=== PATIENT | female | born 1950 | race Caucasian/White ===

== ENCOUNTER 2018-02-21 10:02 | Inpatient (IN) | payer MEDICARE, OTHER ==
[2018-02-21 10:56] VITALS: BP 192/108
[2018-02-21] MEDS ORDERED: guaiFENesin 200 MG/10 ML UDC PO PRN (12:12)
[2018-02-21 12:54] LABS: CHOLESTEROL 197 mg/dL (<200); HDL -HIGH DENSITY LIPOPROTEIN 70 mg/dL (23-92); TRIGLYCERIDES 112 mg/dL (<150)
[2018-02-21] MEDS: Escitalopram Oxalate 5 mg Tab PO SCH (13:59)
--- NOTE | 2018-02-21 17:28 | History and Physical ---
History of Present Illness - HPI Chief Complaint: direct admit from [place] to [facility] for SI HPI: This is a 67-year old female who is a direct admit from [facility] due to suicidal ideation. Vital Signs: Last Vital Signs Temp 97.8 F 02/21/18 16:21 Pulse 89 02/21/18 16:21 Resp 20 02/21/18 16:21 BP 151/99 02/21/18 16:21 Pulse Ox 100 02/21/18 12:06 Past Medical History Other History: HTN SCHIZOPHRENIA DEPRESSION BIPOLAR Social History Smoke: No Alcohol: None Drugs: None Lives: With Family - Allergies Allergies/Adverse Reactions: Allergies Allergy/AdvReac Type Severity Reaction Status Date / Time No Known Allergies Allergy Verified 02/21/18 10:57 Review of Systems - Review of Systems Constitutional: Report: No Significant Eyes: Report: No Significant Respiratory: Report: No Significant Cardiovascular: Report: No Significant Neurological: Report: No Significant Physical Exam - Physical Exam HEENT: Report: Ears Nose Throat within normal limits Neck: Report: Within normal limits Cardiovascular Systems: Report: +s1/s2 noted, Regular, Rate and Rhythm Respiratory: Report: Breath Sounds are within normal limits, Clear to Auscultation of lung griffith Abdomen: Report: Non-tender to palpation Back: Report: Inspection of back is within normal limits. Skin: Report: Color of skin is within normal limits, Warm, Dry Neuro/Psych: Report: Mood affect is within normal limits - Lab Results All Lab Results last 24 hours: Laboratory Results - last 24 hr 02/21/18 12:30 Triglycerides 112 Cholesterol 197 LDL Cholesterol Direct 111 HDL Cholesterol 70 - Assessment Assessment: HTN SCHIZOPHRENIA DEPRESSION BIPOLAR SI - Plan Plan: monitor bp closely will adjust bp meds accordingly fall precautions continue current orders
--- NOTE | 2018-02-22 02:01 | Psychiatric Evaluation ---
DATE OF SERVICE: 02/21/2018 IDENTIFYING DATA: The patient is a 67-year-old female admitted from [facility], brought by the son who has taken the patient over there for suicidal ideation and during the evaluation, the patient is noted to be primarily Guatemalan speaking and the patient is stating that she is not able to sleep and could not figure it out why she has been feeling depressed. The patient is tearful and is anxious. The patient has been variously diagnosed to have schizophrenia, bipolar disorder, depression, and the patient is in need of full assistance with her ADLs. Sleep and appetite at the time of the hospitalization are reported to be poor. The patient is also noted to be very paranoid at this time and has been very guarded in giving the information. The patient is reported to have been compliant with the medication. PAST PSYCHIATRIC HISTORY: Details are not known. MEDICAL HISTORY: Physical examination is requested to be done by Dr. Barnes. SUBSTANCE ABUSE HISTORY: None. PHYSICAL OR SEXUAL ABUSE HISTORY: None. LEGAL PROBLEMS: None at this time. The patient's mood is noted to be depressed. Affect is constricted. The patient is noted to be extremely paranoid and is getting easily anxious. The patient is alert and aware that she is in the hospital. Attention span and concentration are noted to be poor at this time. Insight and judgment also noted to be impaired. Impulse control is noted to be poor. The patient is insisting on hurting herself. IMPRESSION: AXIS I: Schizoaffective disorder. AXIS II: None. AXIS III: As per Dr. Barnes. IMMEDIATE TREATMENT PLAN: The patient is going to be continued on Lexapro and olanzapine. Olanzapine is going to be given 2.5 mg twice a day, Lexapro is going to be started at 5 mg and in view of her anxiety, the patient is going to be started on 0.5 mg b.i.d. of Klonopin. ESTIMATED LENGTH OF STAY: 3-5 days. DISCHARGE CRITERIA: When the patient is no longer a threat to self or others and be able to cope up with the stress. JOB# [id number]
[2018-02-22] MEDS: Escitalopram Oxalate 5 mg Tab PO SCH (09:33)
--- NOTE | 2018-02-22 16:49 | Internal Medicine Prog Note ---
Internal Medicine Subjective - Subjective Service Date: 02/22/18 Patient seen and examined:: with staff Patient is:: awake, verbal Per staff patient has:: no adverse event, tolerating meds Internal Medicine Objective - Results Recent Labs: Laboratory Last Values Triglycerides 112 mg/dL (<150) 02/21/18 12:30 Cholesterol 197 mg/dL (<200) 02/21/18 12:30 LDL Cholesterol Direct 111 mg/dL (75-193) 02/21/18 12:30 HDL Cholesterol 70 mg/dL (23-92) 02/21/18 12:30 - Physical Exam Vitals and I&O: Vital Signs Temp 98.8 F 02/22/18 14:47 Pulse 60 02/22/18 14:47 Resp 18 02/22/18 15:32 BP 101/52 02/22/18 14:47 Pulse Ox 96 02/22/18 14:47 Intake & Output 02/21/18 02/22/18 02/22/18 18:59 06:59 18:59 Weight (lbs) 81 lb Other: Stool Characteristics Soft Weight Source Bedscale Active Medications: Current Medications Acetaminophen (Tylenol) 650 mg PO Q4H PRN PRN Reason: Pain Or Fever above 101 Stop: 04/22/18 12:11 Amlodipine Besylate (Norvasc) 10 mg PO DAILY [facility] Stop: 04/23/18 08:59 Last Admin: 02/22/18 09:33 Dose: 10 mg Atenolol (Tenormin) 50 mg PO DAILY [facility] Stop: 04/22/18 11:59 Last Admin: 02/22/18 09:32 Dose: 50 mg Clonazepam (Klonopin) 0.5 mg PO BID PRN; Protocol PRN Reason: Anxiety Stop: 04/22/18 16:59 Last Admin: 02/22/18 09:33 Dose: 0.5 mg Escitalopram Oxalate (Lexapro) 5 mg PO DAILY [facility]; Protocol Stop: 04/22/18 11:44 Last Admin: 02/22/18 09:33 Dose: 5 mg Guaifenesin (Robitussin) 200 mg PO Q4HR PRN PRN Reason: Cough or Congestion Stop: 04/22/18 12:11 Lisinopril (Zestril) 20 mg PO DAILY [facility] Stop: 04/23/18 08:59 Last Admin: 02/22/18 09:32 Dose: 20 mg Olanzapine (Zyprexa) 2.5 mg PO QAM [facility]; Protocol Stop: 04/22/18 11:44 Last Admin: 02/22/18 09:33 Dose: 2.5 mg Olanzapine (Zyprexa) 2.5 mg PO HS [facility]; Protocol Stop: 04/22/18 20:59 Last Admin: 02/21/18 21:54 Dose: 2.5 mg Ondansetron HCl (Zofran) 4 mg IV Q8H PRN PRN Reason: Nausea / Vomiting Stop: 04/22/18 12:11 General: alert HEENT: NC/AT, PERRLA Neck: Supple Lungs: CTAB Cardiovascular: RRR, Normal S1, Normal S2 Abdomen: soft, non-tender, non-distended Extremities: excoriation Neurological: alert Internal Medicine Assmt/Plan - Assessment Assessment: HTN SCHIZOPHRENIA DEPRESSION BIPOLAR SI - Plan Plan: monitor bp closely will adjust bp meds accordingly fall precautions continue current orders
--- NOTE | 2018-02-23 02:43 | Progress Notes ---
DATE: 02/22/2018 PSYCHIATRIC PROGRESS NOTE SUBJECTIVE: Staff was spoken to. The patient is interviewed. Mood is noted to be irritable. Affect is constricted. The patient wants to be left alone. The patient is extremely depressed, isolative, and withdrawn. Coping skills at this time are noted to be very poor. The patient is currently on escitalopram 5 mg and Zyprexa has been given 2.5 mg. She continues to be paranoid and insisting on ending her life. ASSESSMENT: The patient is severely depressed, psychotic, and suicidal. PLAN: To continue the patient with the supportive therapy. We encouraged the patient to verbalize the concerns rather than to act out. JOB# [id number]
[2018-02-23] MEDS: Escitalopram Oxalate 5 mg Tab PO SCH (09:07)
--- NOTE | 2018-02-23 09:37 | Consultation ---
DATE OF CONSULTATION: 02/22/2018 REFERRING PHYSICIAN: Cody Carpenter MD TYPE OF CONSULTATION: Psychology. HISTORY OF PRESENT ILLNESS: The patient is a 67-year-old female. The patient is admitted from [facility]. The patient is brought in by her son due to suicidal ideation. The following is by review of the medical record and by patient's self-report. 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 The patient admits that she is depressed, but is unable to state the reasons why she is depressed. There seems to be suspiciousness on the part of the patient and the patient is at times reluctant to answer questions. However, the patient did admit that she does have suicidal thoughts passively without a plan or intention. PAST MEDICAL HISTORY: Please see history and physical by Dr. Barnes. PAST PSYCHIATRIC HISTORY: Records are unavailable. Details are unknown. SUBSTANCE ABUSE HISTORY: The patient denied any history. PSYCHOSOCIAL HISTORY: The patient did not answer questions about occupational or educational history or gnosticism affiliation. The patient denied any history of physical or sexual abuse or any current legal problems. The patient's son is very involved in her care. MENTAL STATUS EXAMINATION: The patient appears to be older than her stated age. The patient's attitude is superficially cooperative. Eye contact is poor. Speech is selectively mute, at times, but otherwise spontaneous. Mood is depressed. Affect is constricted. There is evidence of paranoid ideation as well as some anxiety. The patient denied any auditory or visual hallucinations. The patient admits that she has experienced suicidal thoughts and hurting herself. The patient is unable to verbally contract for safety. Impulse control is inadequate. Concentration is impaired. Sensorium is alert and oriented to self and place. The patient did not participate in the memory assessment. The patient did not participate in the interpretation of proverbs. Insight is impaired. Judgment is impaired. DIAGNOSTIC IMPRESSION: AXIS I: Provisional diagnosis of schizoaffective disorder. AXIS II: Deferred. AXIS III: Per Dr. Barnes. TREATMENT PLAN: The patient has been seen by Dr. Carpenter for psychiatric evaluation and for the management of the patient's psychotropic medications. The treatment plan indicates the patient is continued on Lexapro and olanzapine as well as being started on 0.5 mg b.i.d. of Klonopin. We will provide supportive psychotherapy to include suicide risk and prevention. We will provide daily opportunities for the patient to verbally contract for safety and no self-harm. We will provide cognitive behavioral therapy to decrease the patient's depression. We will provide coping strategies for phase of life issues as well. We will continue to provide reality orientation, differentiation and integration and assist the patient in managing her stress and increasing her frustration tolerance. The patient's family will be included in her care and treatment. Thank you, Dr. Carpenter for this consult and the opportunity to participate in this patient's care. JOB# [id number] ACE
--- NOTE | 2018-02-23 12:53 | Internal Medicine Prog Note ---
Internal Medicine Subjective - Subjective Patient seen and examined:: with staff, chart reviewed Patient is:: awake, verbal, interactive Per staff patient has:: no adverse event, no episodes of fall, tolerating meds Internal Medicine Objective - Results Recent Labs: Laboratory Last Values Triglycerides 112 mg/dL (<150) 02/21/18 12:30 Cholesterol 197 mg/dL (<200) 02/21/18 12:30 LDL Cholesterol Direct 111 mg/dL (75-193) 02/21/18 12:30 HDL Cholesterol 70 mg/dL (23-92) 02/21/18 12:30 - Physical Exam Vitals and I&O: Vital Signs Temp 98.6 F 02/23/18 06:34 Pulse 72 02/23/18 08:32 Resp 18 02/23/18 11:20 BP 114/71 02/23/18 08:32 Pulse Ox 98 02/23/18 06:34 Intake & Output 02/22/18 02/23/18 02/23/18 18:59 06:59 18:59 Other: # Voids 3 3 # Bowel Movements 0 0 Active Medications: Current Medications Acetaminophen (Tylenol) 650 mg PO Q4H PRN PRN Reason: Pain Or Fever above 101 Stop: 04/22/18 12:11 Amlodipine Besylate (Norvasc) 10 mg [facility] Stop: 04/23/18 08:59 Last Admin: 02/23/18 08:31 Dose: 10 mg Atenolol (Tenormin) 50 mg PO DAILY [facility] Stop: 04/22/18 11:59 Last Admin: 02/23/18 08:30 Dose: 50 mg Clonazepam (Klonopin) 0.5 mg PO BID PRN; Protocol PRN Reason: Anxiety Stop: 04/22/18 16:59 Last Admin: 02/22/18 09:33 Dose: 0.5 mg Escitalopram Oxalate (Lexapro) 5 mg PO DAILY [facility]; Protocol Stop: 04/22/18 11:44 Last Admin: 02/23/18 09:07 Dose: 5 mg Guaifenesin (Robitussin) 200 mg PO Q4HR PRN PRN Reason: Cough or Congestion Stop: 04/22/18 12:11 Lisinopril (Zestril) 20 mg PO [facility]ILY [facility] Stop: 04/23/18 08:59 Last Admin: 02/23/18 08:32 Dose: 20 mg Olanzapine (Zyprexa) 2.5 mg PO QAM [facility]; Protocol Stop: 04/22/18 11:44 Last Admin: 02/23/18 08:30 Dose: 2.5 mg Olanzapine (Zyprexa) 2.5 mg PO HS [facility]; Protocol Stop: 04/22/18 20:59 Last Admin: 02/22/18 21:00 Dose: 2.5 mg Ondansetron HCl (Zofran) 4 mg IV Q8H PRN PRN Reason: Nausea / Vomiting Stop: 04/22/18 12:11 General: demented HEENT: NC/AT, PERRLA Neck: Supple Lungs: CTAB Cardiovascular: RRR, Normal S1, Normal S2 Abdomen: soft, non-tender, non-distended Extremities: excoriation Neurological: no change Internal Medicine Assmt/Plan - Assessment Assessment: Assessment: HTN SCHIZOPHRENIA DEPRESSION BIPOLAR SI - Plan Plan: monitor bp closely will adjust bp meds accordingly fall precautions continue current orders - Plan Plan: labs noted cpm
[2018-02-24] MEDS: Escitalopram Oxalate 5 mg Tab PO SCH (10:00)
--- NOTE | 2018-02-24 10:06 | Progress Notes ---
DATE: 02/23/2018 SUBJECTIVE: Staff was spoken to. The patient is interviewed. Mood is noted to be irritable. Affect is constricted. The patient is stating that she is tired of her life and she is looking for ways to kill herself. The patient is stating that the depression has been an issue for her for the past couple of years and she could not figure it out. The patient is paranoid at this time. The patient is not able to contract for safety. The patient is currently on escitalopram 5 mg and I am planning to increase the dose to 10 mg and the Zyprexa is going to be continued for her psychosis. The patient is denying any command hallucinations and the patient is still insisting on ending her life. The patient's coping skills are noted to be very poor at this time. ASSESSMENT: The patient is still psychotic and suicidal. The patient appetite and sleep are noted to be very poor. PLAN: To continue the patient with the supportive therapy and I encouraged the patient to verbalize the concerns rather than to act out. PSYCHIATRIC# [id number]
--- NOTE | 2018-02-24 12:59 | Internal Medicine Prog Note ---
Internal Medicine Subjective - Subjective Patient seen and examined:: with staff, chart reviewed Patient is:: awake, verbal, interactive Per staff patient has:: no adverse event, no episodes of fall, tolerating meds Internal Medicine Objective - Results Recent Labs: Laboratory Last Values Triglycerides 112 mg/dL (<150) 02/21/18 12:30 Cholesterol 197 mg/dL (<200) 02/21/18 12:30 LDL Cholesterol Direct 111 mg/dL (75-193) 02/21/18 12:30 HDL Cholesterol 70 mg/dL (23-92) 02/21/18 12:30 - Physical Exam Vitals and I&O: Vital Signs Temp 98.0 F 02/24/18 05:08 Pulse 65 02/24/18 10:00 Resp 18 02/24/18 05:08 BP 135/84 02/24/18 10:00 Pulse Ox 98 02/24/18 05:08 Intake & Output 02/23/18 02/24/18 02/24/18 18:59 06:59 18:59 Intake Total 480 Balance 480 Intake: Oral 480 Other: # Voids 2 2 # Bowel Movements 0 Active Medications: Current Medications Acetaminophen (Tylenol) 650 mg PO Q4H PRN PRN Reason: Pain Or Fever above 101 Stop: 04/22/18 12:11 Last Admin: 02/23/18 14:35 Dose: 650 mg Amlodipine Besylate (Norvasc) 10 mg PO DAILY [facility] Stop: 04/23/18 08:59 Last Admin: 02/24/18 10:00 Dose: 10 mg Atenolol (Tenormin) 50 mg PO DAILY [facility] Stop: 04/22/18 11:59 Last Admin: 02/24/18 10:00 Dose: 50 mg Clonazepam (Klonopin) 0.5 mg PO BID PRN; Protocol PRN Reason: Anxiety Stop: 04/22/18 16:59 Last Admin: 02/22/18 09:33 Dose: 0.5 mg Escitalopram Oxalate (Lexapro) 10 mg PO DAILY [facility]; Protocol Stop: 04/25/18 08:59 Last Admin: 02/24/18 10:00 Dose: 10 mg Guaifenesin (Robitussin) 200 mg PO Q4HR PRN PRN Reason: Cough or Congestion Stop: 04/22/18 12:11 Lisinopril (Zestril) 20 mg PO DAILY [facility] Stop: 04/23/18 08:59 Last Admin: 02/24/18 10:00 Dose: 20 mg Olanzapine (Zyprexa) 2.5 mg PO QAM [facility]; Protocol Stop: 04/22/18 11:44 Last Admin: 02/24/18 10:00 Dose: 2.5 mg Olanzapine (Zyprexa) 2.5 mg PO HS [facility]; Protocol Stop: 04/22/18 20:59 Last Admin: 02/24/18 06:26 Dose: 2.5 mg Ondansetron HCl (Zofran) 4 mg IV Q8H PRN PRN Reason: Nausea / Vomiting Stop: 04/22/18 12:11 General: demented HEENT: NC/AT, PERRLA Neck: Supple Lungs: CTAB Cardiovascular: RRR, Normal S1, Normal S2 Abdomen: soft, non-tender, non-distended Extremities: excoriation Neurological: no change Internal Medicine Assmt/Plan - Assessment Assessment: Assessment: HTN SCHIZOPHRENIA DEPRESSION BIPOLAR SI - Plan Plan: monitor bp closely will adjust bp meds accordingly fall precautions continue current orders - Plan Plan: labs noted cpm
--- NOTE | 2018-02-25 00:12 | Progress Notes ---
DATE: 02/24/2018 PSYCHIATRIC PROGRESS NOTE SUBJECTIVE: Staff was spoken to. The patient is interviewed. Mood is noted to be depressed. Affect is constricted. Insight and judgment at this time are noted to be still impaired. Impulse control is noted to be limited. Coping skills are noted to be limited. The patient has been having difficult time to cope with the stress. The patient is isolative and withdrawn. ASSESSMENT: The patient is still depressed and suicidal. PLAN: To continue the patient with the supportive therapy. I encouraged the patient to verbalize the concerns rather than to act out. JOB# [id number]
[2018-02-25] MEDS: Escitalopram Oxalate 5 mg Tab PO SCH (08:58)
[2018-02-25 09:08] LABS: % BASOPHILS 0.5 % (0.0-2.0); % EOSINOPHILS 0.7 % (0.0-5.0); % LYMPHOCYTES 17.6 % (20.0-50.0); % MONOCYTES 4.1 % (2.0-10.0); % NEUTROPHILS 77.1 % (40.0-80.0); EOSINOPHILE ABSOLUTE 0.1 Th/cmm (0.1-0.4); HEMOGLOBIN 13.9 gm/dL (12-16); LYMPHOCYTE ABSOLUTE 1.5 Th/cmm (1.5-3.0); MEAN CORPUSCULAR HEMOGLOBIN 30.9 pg (27.0-31.0); MEAN CORPUSCULAR HGB CONC 33.9 pg (28.0-36.0); MEAN PLATELET VOLUME 7.9 fl; MONOCYTE ABSOLUTE 0.3 Th/cmm (0.3-1.0); NEUTROPHILE ABSOLUTE 6.5 Th/cmm (1.8-8.0); PLATELET COUNT 271 Th/cmm (150-400); WHITE BLOOD COUNT 8.4 Th/cmm (4.8-10.8)
[2018-02-25 09:17] LABS: ALB/GLOB RATIO 1.5 (1.0-1.8); ALBUMIN 3.7 gm/dL (3.7-5.3); ALKALINE PHOSPHATASE 52 U/L (34-104); ANION GAP 14.5 (7.0-16.0); BILIRUBIN,TOTAL 0.5 mg/dL (0.3-1.0); BUN - UREA NITROGEN 18 mg/dL (7-25); CALCIUM SERUM 9.5 mg/dL (8.6-10.3); CHLORIDE 107 mEq/L (98-107); CREATININE - SERUM 0.7 mg/dL (0.6-1.2); GFR AFRICAN-AMERICAN > 60.0 ml/min (>90); GFR NON AFRICAN-AMERICAN > 60.0 ml/min; GLUCOSE 130 mg/dL (70-105); POTASSIUM SERUM 3.5 mEq/L (3.5-5.1); SGOT 11 U/L (13-39); SGPT/ALT 10 U/L (7-52); SODIUM SERUM 144 mEq/L (136-145); TOTAL PROTEIN,SERUM 6.2 gm/dL (6.0-8.3)
[2018-02-25 09:38] LABS: URINE SOURCE CLEAN C
[2018-02-25 09:43] LABS: URINE BILIRUBIN NEGATIVE (NEGATIVE); URINE BLOOD NEGATIVE (NEGATIVE); URINE GLUCOSE (UA) NEGATIVE (NEGATIVE); URINE KETONE NEGATIVE (NEGATIVE); URINE LEUKOCYTE ESTERASE NEGATIVE (NEGATIVE); URINE NITRATE NEGATIVE (NEGATIVE); URINE PROTEIN NEGATIVE (NEGATIVE); URINE UROBILINOGEN 0.2 E.U./dL (0.2 - 1.0)
[2018-02-25 09:48] LABS: URINE CLARITY CLEAR (CLEAR); URINE COLOR YELLOW
--- NOTE | 2018-02-25 09:51 | Internal Medicine Prog Note ---
Internal Medicine Subjective - Subjective Patient seen and examined:: with staff, chart reviewed Patient is:: awake, verbal, interactive Per staff patient has:: no adverse event, no episodes of fall, tolerating meds Internal Medicine Objective - Results Result Diagrams: 02/25/18 08:54 02/25/18 08:54 Recent Labs: Laboratory Last Values WBC 8.4 Th/cmm (4.8-10.8) 02/25/18 08:54 RBC 4.50 Mil/cmm (3.80-5.20) 02/25/18 08:54 Hgb 13.9 gm/dL (12-16) 02/25/18 08:54 Hct 41.0 % (41.0-60) 02/25/18 08:54 MCV 91.0 fl (81-100) 02/25/18 08:54 MCH 30.9 pg (27.0-31.0) 02/25/18 08:54 MCHC Differential 33.9 pg (28.0-36.0) 02/25/18 08:54 RDW 13.0 % (11.5-20.0) 02/25/18 08:54 Plt Count 271 Th/cmm (150-400) 02/25/18 08:54 MPV 7.9 fl 02/25/18 08:54 Neutrophils % 77.1 % (40.0-80.0) 02/25/18 08:54 Lymphocytes % 17.6 % (20.0-50.0) L 02/25/18 08:54 Monocytes % 4.1 % (2.0-10.0) 02/25/18 08:54 Eosinophils % 0.7 % (0.0-5.0) 02/25/18 08:54 Basophils % 0.5 % (0.0-2.0) 02/25/18 08:54 Sodium 144 mEq/L (136-145) 02/25/18 08:54 Potassium 3.5 mEq/L (3.5-5.1) 02/25/18 08:54 Chloride 107 mEq/L (98-107) 02/25/18 08:54 Carbon Dioxide 26.0 mEq/L (21.0-31.0) 02/25/18 08:54 Anion Gap 14.5 (7.0-16.0) 02/25/18 08:54 BUN 18 mg/dL (7-25) 02/25/18 08:54 Creatinine 0.7 mg/dL (0.6-1.2) 02/25/18 08:54 Est GFR ( Amer) > 60.0 ml/min (>90) 02/25/18 08:54 Est GFR (Non-Af Amer) > 60.0 ml/min 02/25/18 08:54 BUN/Creatinine Ratio 25.7 02/25/18 08:54 Glucose 130 mg/dL (70-105) H 02/25/18 08:54 Calcium 9.5 mg/dL (8.6-10.3) 02/25/18 08:54 Total Bilirubin 0.5 mg/dL (0.3-1.0) 02/25/18 08:54 AST 11 U/L (13-39) L 02/25/18 08:54 ALT 10 U/L (7-52) 02/25/18 08:54 Alkaline Phosphatase 52 U/L (34-104) 02/25/18 08:54 Total Protein 6.2 gm/dL (6.0-8.3) 02/25/18 08:54 Albumin 3.7 gm/dL (3.7-5.3) 02/25/18 08:54 Globulin 2.5 gm/dL 02/25/18 08:54 Albumin/Globulin Ratio 1.5 (1.0-1.8) 02/25/18 08:54 Triglycerides 112 mg/dL (<150) 02/21/18 12:30 Cholesterol 197 mg/dL (<200) 02/21/18 12:30 LDL Cholesterol Direct 111 mg/dL (75-193) 02/21/18 12:30 HDL Cholesterol 70 mg/dL (23-92) 02/21/18 12:30 Urine Source CLEAN C 02/25/18 09:30 Urine Color YELLOW 02/25/18 09:30 Urine Clarity CLEAR (CLEAR) 02/25/18 09:30 Urine pH 7.0 (4.6 - 8.0) 02/25/18 09:30 Ur Specific [place] <= 1.005 (1.005-1.030) 02/25/18 09:30 Urine Protein NEGATIVE mg/dL (NEGATIVE) 02/25/18 09:30 Urine Glucose (UA) NEGATIVE mg/dL (NEGATIVE) 02/25/18 09:30 Urine Ketones NEGATIVE mg/dL (NEGATIVE) 02/25/18 09:30 Urine Blood NEGATIVE (NEGATIVE) 02/25/18 09:30 Urine Nitrate NEGATIVE (NEGATIVE) 02/25/18 09:30 Urine Bilirubin NEGATIVE (NEGATIVE) 02/25/18 09:30 Urine Urobilinogen 0.2 E.U./dL (0.2 - 1.0) 02/25/18 09:30 Ur Leukocyte Esterase NEGATIVE (NEGATIVE) 02/25/18 09:30 - Physical Exam Vitals and I&O: Vital Signs Temp 97.9 F 02/25/18 04:59 Pulse 70 02/25/18 08:58 Resp 18 02/25/18 08:00 BP 116/76 02/25/18 08:58 Pulse Ox 99 02/25/18 04:59 Intake & Output 02/24/18 02/25/18 02/25/18 18:59 06:59 18:59 Intake Total 480 Balance 480 Intake: Oral 480 Other: # Voids 2 Active Medications: Current Medications Acetaminophen (Tylenol) 650 mg PO Q4H PRN PRN Reason: Pain Or Fever above 101 Stop: 04/22/18 12:11 Last Admin: 02/23/18 14:35 Dose: 650 mg Amlodipine Besylate (Norvasc) 10 mg PO DAILY [facility] Stop: 04/23/18 08:59 Last Admin: 02/25/18 08:57 Dose: 10 mg Atenolol (Tenormin) 50 mg PO DAILY [facility] Stop: 04/22/18 11:59 Last Admin: 02/25/18 08:58 Dose: 50 mg Clonazepam (Klonopin) 0.5 mg PO BID PRN; Protocol PRN Reason: Anxiety Stop: 04/22/18 16:59 Last Admin: 02/22/18 09:33 Dose: 0.5 mg Escitalopram Oxalate (Lexapro) 10 mg PO DAILY [facility]; Protocol Stop: 04/25/18 08:59 Last Admin: 02/25/18 08:58 Dose: 10 mg Guaifenesin (Robitussin) 200 mg PO Q4HR PRN PRN Reason: Cough or Congestion Stop: 04/22/18 12:11 Lisinopril (Zestril) 20 mg PO DAILY [facility] Stop: 04/23/18 08:59 Last Admin: 02/25/18 08:56 Dose: 20 mg Olanzapine (Zyprexa) 2.5 mg PO QAM [facility]; Protocol Stop: 04/22/18 11:44 Last Admin: 02/25/18 08:57 Dose: 2.5 mg Olanzapine (Zyprexa) 2.5 mg PO HS [facility]; Protocol Stop: 04/22/18 20:59 Last Admin: 02/24/18 21:30 Dose: 2.5 mg Ondansetron HCl (Zofran) 4 mg IV Q8H PRN PRN Reason: Nausea / Vomiting Stop: 04/22/18 12:11 General: demented HEENT: NC/AT, PERRLA Neck: Supple Lungs: CTAB Cardiovascular: RRR, Normal S1, Normal S2 Abdomen: soft, non-tender, non-distended Extremities: excoriation Neurological: no change Internal Medicine Assmt/Plan - Assessment Assessment: Assessment: HTN SCHIZOPHRENIA DEPRESSION BIPOLAR SI - Plan Plan: monitor bp closely will adjust bp meds accordingly fall precautions continue current orders - Plan Plan: labs noted cpm Nutritional Asmnt/Malnutr-PDOC - Dietary Evaluation Malnutrition Findings (Please click <Entered> for more info): Nutritional Asmnt/Malnutrition Start: 02/24/18 13: 26 Text: Status: Complete Freq: Protocol: Document 02/24/18 13:26 [email or web address] (Rec: 02/24/18 13:34 [email or web address]) Nutritional Asmnt/Malnutrition Patient General Information Nutritional Screening Moderate Risk Diagnosis anxiety with SI Pertinent Medical Hx/Surgical Hx HTN, schizophrenia, depression , bipolar Subjective Information Pt was alert, walking around the hallway at time of visit. Pt is a Omani speaker. Nurses assisted in asking if pt has any food preferences, pt had no concerns. PO intake is 75-100% per EMR. Current Diet Order/ Nutrition Support regular Pertinent Medications zofran Pertinent Labs not indicated Nutritional Hx/Data Height 1.52 m Height (Calculated Centimeters) 152.4 Current Weight (lbs) 36.741 kg Weight (Calculated Kilograms) 36.7 Weight (Calculated Grams) 60139.0 [place] Body Weight 100 Body Mass Index (BMI) 15.8 Weight Status Underweight GI Symptoms GI Symptoms None Last BM not indicated Difficult in: None Food Allergies No Skin Integrity/Comment: dryness, tim 20 Current %PO Good (75-100%) Estimated Nutritional Goals BEE in Kcals: Using Current wt Calories/Kcals/Kg 30-35 Kcals Calculated [id number] Protein: Using Current wt Protein g/k.2 Protein Calculated 44 Fluid: ml 9114-9114 (1ml/kcal) Nutritional Problem No current Nutrition Prob Problem N/A Malnutrition Alert Is there a minimum of two criteria No selected? Query Text:Check all the applicable criteria. A minimum of two criteria are recommended for diagnosis of either severe or non-severe malnutrition. Malnutrition Related to Morbid Obesity Malnutrition related to morbid obesity No Intervention/Recommendation Comments 1. Continue with no added salt (4gm) diet as ordered 2. Monitor PO intake, wt, labs and skin integrity 3. Consider adding ensure to assist in weight gain 4. F/U as low risk in 7 days 03/03 PO check 02/27 Expected Outcomes/Goals Expected Outcomes/Goals Goal: PO intake to meet at least 75% of nutritional needs . Reviewed by Claire Leon RD
--- NOTE | 2018-02-25 22:57 | Progress Notes ---
DATE: 02/25/2018 PSYCHIATRIC PROGRESS NOTE SUBJECTIVE: Staff was spoken to. The patient is interviewed. Mood is noted to be irritable. Affect is constricted. Insight and judgment are noted to be still impaired. Impulse control is noted to be limited. Coping skills are noted to be limited. The patient has been having difficult time to cope with the stress. No side effects to the medications are noted. The patient has been still depressed and has been insisting on ending her life. Coping skills are noted to be extremely poor at this time. ASSESSMENT: The patient is still suicidal. PLAN: To continue the patient with the current medications. I encouraged the patient to verbalize the concerns rather than to act out. JOB# [id number]
[2018-02-26] MEDS: Escitalopram Oxalate 5 mg Tab PO SCH (08:36)
--- NOTE | 2018-02-26 14:22 | Internal Medicine Prog Note ---
Internal Medicine Subjective - Subjective Patient seen and examined:: with staff, chart reviewed Patient is:: awake, verbal, interactive Per staff patient has:: no adverse event, no episodes of fall, tolerating meds Internal Medicine Objective - Results Result Diagrams: 02/25/18 08:54 02/25/18 08:54 Recent Labs: Laboratory Last Values WBC 8.4 Th/cmm (4.8-10.8) 02/25/18 08:54 RBC 4.50 Mil/cmm (3.80-5.20) 02/25/18 08:54 Hgb 13.9 gm/dL (12-16) 02/25/18 08:54 Hct 41.0 % (41.0-60) 02/25/18 08:54 MCV 91.0 fl (81-100) 02/25/18 08:54 MCH 30.9 pg (27.0-31.0) 02/25/18 08:54 MCHC Differential 33.9 pg (28.0-36.0) 02/25/18 08:54 RDW 13.0 % (11.5-20.0) 02/25/18 08:54 Plt Count 271 Th/cmm (150-400) 02/25/18 08:54 MPV 7.9 fl 02/25/18 08:54 Neutrophils % 77.1 % (40.0-80.0) 02/25/18 08:54 Lymphocytes % 17.6 % (20.0-50.0) L 02/25/18 08:54 Monocytes % 4.1 % (2.0-10.0) 02/25/18 08:54 Eosinophils % 0.7 % (0.0-5.0) 02/25/18 08:54 Basophils % 0.5 % (0.0-2.0) 02/25/18 08:54 Sodium 144 mEq/L (136-145) 02/25/18 08:54 Potassium 3.5 mEq/L (3.5-5.1) 02/25/18 08:54 Chloride 107 mEq/L (98-107) 02/25/18 08:54 Carbon Dioxide 26.0 mEq/L (21.0-31.0) 02/25/18 08:54 Anion Gap 14.5 (7.0-16.0) 02/25/18 08:54 BUN 18 mg/dL (7-25) 02/25/18 08:54 Creatinine 0.7 mg/dL (0.6-1.2) 02/25/18 08:54 Est GFR ( Amer) > 60.0 ml/min (>90) 02/25/18 08:54 Est GFR (Non-Af Amer) > 60.0 ml/min 02/25/18 08:54 BUN/Creatinine Ratio 25.7 02/25/18 08:54 Glucose 130 mg/dL (70-105) H 02/25/18 08:54 Calcium 9.5 mg/dL (8.6-10.3) 02/25/18 08:54 Total Bilirubin 0.5 mg/dL (0.3-1.0) 02/25/18 08:54 AST 11 U/L (13-39) L 02/25/18 08:54 ALT 10 U/L (7-52) 02/25/18 08:54 Alkaline Phosphatase 52 U/L (34-104) 02/25/18 08:54 Total Protein 6.2 gm/dL (6.0-8.3) 02/25/18 08:54 Albumin 3.7 gm/dL (3.7-5.3) 02/25/18 08:54 Globulin 2.5 gm/dL 02/25/18 08:54 Albumin/Globulin Ratio 1.5 (1.0-1.8) 02/25/18 08:54 Triglycerides 112 mg/dL (<150) 02/21/18 12:30 Cholesterol 197 mg/dL (<200) 02/21/18 12:30 LDL Cholesterol Direct 111 mg/dL (75-193) 02/21/18 12:30 HDL Cholesterol 70 mg/dL (23-92) 02/21/18 12:30 TSH 1.84 uIU/ml (0.34-5.60) 02/25/18 08:54 Urine Source CLEAN C 02/25/18 09:30 Urine Color YELLOW 02/25/18 09:30 Urine Clarity CLEAR (CLEAR) 02/25/18 09:30 Urine pH 7.0 (4.6 - 8.0) 02/25/18 09:30 Ur Specific [place] <= 1.005 (1.005-1.030) 02/25/18 09:30 Urine Protein NEGATIVE mg/dL (NEGATIVE) 02/25/18 09:30 Urine Glucose (UA) NEGATIVE mg/dL (NEGATIVE) 02/25/18 09:30 Urine Ketones NEGATIVE mg/dL (NEGATIVE) 02/25/18 09:30 Urine Blood NEGATIVE (NEGATIVE) 02/25/18 09:30 Urine Nitrate NEGATIVE (NEGATIVE) 02/25/18 09:30 Urine Bilirubin NEGATIVE (NEGATIVE) 02/25/18 09:30 Urine Urobilinogen 0.2 E.U./dL (0.2 - 1.0) 02/25/18 09:30 Ur Leukocyte Esterase NEGATIVE (NEGATIVE) 02/25/18 09:30 - Physical Exam Vitals and I&O: Vital Signs Temp 97.5 F 02/26/18 06:56 Pulse 72 02/26/18 08:36 Resp 18 02/26/18 08:00 BP 101/63 02/26/18 08:36 Pulse Ox 98 02/26/18 06:56 Intake & Output 02/25/18 02/26/18 02/26/18 18:59 06:59 18:59 Intake Total 750 Balance 750 Intake: Oral 750 Other: # Voids 4 # Bowel Movements 1 Active Medications: Current Medications Acetaminophen (Tylenol) 650 mg PO Q4H PRN PRN Reason: Pain Or Fever above 101 Stop: 04/22/18 12:11 Last Admin: 02/23/18 14:35 Dose: 650 mg Amlodipine Besylate (Norvasc) 10 mg PO DAILY [facility] Stop: 04/23/18 08:59 Last Admin: 02/26/18 08:35 Dose: 10 mg Atenolol (Tenormin) 50 mg PO DAILY [facility] Stop: 04/22/18 11:59 Last Admin: 02/26/18 08:36 Dose: 50 mg Clonazepam (Klonopin) 0.5 mg PO BID PRN; Protocol PRN Reason: Anxiety Stop: 04/22/18 16:59 Last Admin: 02/25/18 20:56 Dose: 0.5 mg Escitalopram Oxalate (Lexapro) 10 mg PO DAILY [facility]; Protocol Stop: 04/25/18 08:59 Last Admin: 02/26/18 08:36 Dose: 10 mg Guaifenesin (Robitussin) 200 mg PO Q4HR PRN PRN Reason: Cough or Congestion Stop: 04/22/18 12:11 Lisinopril (Zestril) 20 mg PO DAILY [facility] Stop: 04/23/18 08:59 Last Admin: 02/26/18 08:34 Dose: 20 mg Olanzapine (Zyprexa) 2.5 mg PO QAM [facility]; Protocol Stop: 04/22/18 11:44 Last Admin: 02/26/18 08:35 Dose: 2.5 mg Olanzapine (Zyprexa) 2.5 mg PO HS [facility]; Protocol Stop: 04/22/18 20:59 Last Admin: 02/25/18 20:56 Dose: 2.5 mg Ondansetron HCl (Zofran) 4 mg IV Q8H PRN PRN Reason: Nausea / Vomiting Stop: 04/22/18 12:11 General: demented HEENT: NC/AT, PERRLA Neck: Supple Lungs: CTAB Cardiovascular: RRR, Normal S1, Normal S2 Abdomen: soft, non-tender, non-distended Extremities: excoriation Neurological: no change Internal Medicine Assmt/Plan - Assessment Assessment: Assessment: HTN SCHIZOPHRENIA DEPRESSION BIPOLAR SI - Plan Plan: monitor bp closely will adjust bp meds accordingly fall precautions continue current orders - Plan Plan: labs noted cpm Nutritional Asmnt/Malnutr-PDOC - Dietary Evaluation Malnutrition Findings (Please click <Entered> for more info): Nutritional Asmnt/Malnutrition Start: 02/24/18 13: 26 Text: Status: Complete Freq: Protocol: Document 02/24/18 13:26 [email or web address] (Rec: 02/24/18 13:34 [email or web address]) Nutritional Asmnt/Malnutrition Patient General Information Nutritional Screening Moderate Risk Diagnosis anxiety with SI Pertinent Medical Hx/Surgical Hx HTN, schizophrenia, depression , bipolar Subjective Information Pt was alert, walking around the hallway at time of visit. Pt is a Thai speaker. Nurses assisted in asking if pt has any food preferences, pt had no concerns. PO intake is 75-100% per EMR. Current Diet Order/ Nutrition Support regular Pertinent Medications zofran Pertinent Labs not indicated Nutritional Hx/Data Height 1.52 m Height (Calculated Centimeters) 152.4 Current Weight (lbs) 36.741 kg Weight (Calculated Kilograms) 36.7 Weight (Calculated Grams) 26460.0 [place] Body Weight 100 Body Mass Index (BMI) 15.8 Weight Status Underweight GI Symptoms GI Symptoms None Last BM not indicated Difficult in: None Food Allergies No Skin Integrity/Comment: dryness, tim 20 Current %PO Good (75-100%) Estimated Nutritional Goals BEE in Kcals: Using Current wt Calories/Kcals/Kg 30-35 Kcals Calculated 3656-4830 Protein: Using Current wt Protein g/k.2 Protein Calculated 44 Fluid: ml 5842-4573 (1ml/kcal) Nutritional Problem No current Nutrition Prob Problem N/A Malnutrition Alert Is there a minimum of two criteria No selected? Query Text:Check all the applicable criteria. A minimum of two criteria are recommended for diagnosis of either severe or non-severe malnutrition. Malnutrition Related to Morbid Obesity Malnutrition related to morbid obesity No Intervention/Recommendation Comments 1. Continue with no added salt (4gm) diet as ordered 2. Monitor PO intake, wt, labs and skin integrity 3. Consider adding ensure to assist in weight gain 4. F/U as low risk in 7 days 03/03 PO check 02/27 Expected Outcomes/Goals Expected Outcomes/Goals Goal: PO intake to meet at least 75% of nutritional needs . Reviewed by Claire Leon RD
--- NOTE | 2018-02-26 19:33 | Progress Notes ---
DATE: 02/26/2018 COVERING FOR: Dr. Carpenter. IDENTIFYING DATA: A 67-year-old female brought in here from [facility] who was initially brought in here by her son for suicidal ideation with a previous history of schizoaffective disorder. HOSPITAL COURSE: The patient has been treated with the following medications ____, clonazepam 0.5 p.o. b.i.d. p.r.n., escitalopram 10 mg daily, and olanzapine 2.5 mg q.a.m. and at bedtime. SUBJECTIVE: Nursing staff reports that the patient has been isolated, disengaged in her room with minimally interactive in action. Today on [id number] evaluation, her mood is easily irritable, easily agitated, and endorsing a lot of sadness and depression upon interview. MENTAL STATUS EXAMINATION: Depressed, melancholic, disengaged with suicidal ideation. ASSESSMENT AND PLAN: We will continue with primary psychiatrist's treatment plan and goals as noted above including the medications to continue to resteady state to target the patient's depression. No side effects reported. JOB# [id number]
--- NOTE | 2018-02-27 08:02 | Progress Notes ---
DATE: 02/27/[address] Serra. Today on [id number] evaluation, the patient's nursing staff reporting that patient mostly been isolated, disengaged. Today on [id number] evaluation, evasive about her interview, disengaged, agitative. ASSESSMENT AND PLAN: Due to the patient's melancholic, disengaged and expressive data unable to formulate a safe plan. We will continue with primary psychiatrist's treatment plan and goals, which include antidepressant and antipsychotic. JOB# [id number]
[2018-02-27] MEDS: Escitalopram Oxalate 5 mg Tab PO SCH (08:59)
--- NOTE | 2018-02-27 14:49 | Internal Medicine Prog Note ---
Internal Medicine Subjective - Subjective Patient seen and examined:: with staff, chart reviewed Patient is:: awake, verbal, interactive Per staff patient has:: no adverse event, no episodes of fall, tolerating meds Internal Medicine Objective - Results Result Diagrams: 02/25/18 08:54 02/25/18 08:54 Recent Labs: Laboratory Last Values WBC 8.4 Th/cmm (4.8-10.8) 02/25/18 08:54 RBC 4.50 Mil/cmm (3.80-5.20) 02/25/18 08:54 Hgb 13.9 gm/dL (12-16) 02/25/18 08:54 Hct 41.0 % (41.0-60) 02/25/18 08:54 MCV 91.0 fl (81-100) 02/25/18 08:54 MCH 30.9 pg (27.0-31.0) 02/25/18 08:54 MCHC Differential 33.9 pg (28.0-36.0) 02/25/18 08:54 RDW 13.0 % (11.5-20.0) 02/25/18 08:54 Plt Count 271 Th/cmm (150-400) 02/25/18 08:54 MPV 7.9 fl 02/25/18 08:54 Neutrophils % 77.1 % (40.0-80.0) 02/25/18 08:54 Lymphocytes % 17.6 % (20.0-50.0) L 02/25/18 08:54 Monocytes % 4.1 % (2.0-10.0) 02/25/18 08:54 Eosinophils % 0.7 % (0.0-5.0) 02/25/18 08:54 Basophils % 0.5 % (0.0-2.0) 02/25/18 08:54 Sodium 144 mEq/L (136-145) 02/25/18 08:54 Potassium 3.5 mEq/L (3.5-5.1) 02/25/18 08:54 Chloride 107 mEq/L (98-107) 02/25/18 08:54 Carbon Dioxide 26.0 mEq/L (21.0-31.0) 02/25/18 08:54 Anion Gap 14.5 (7.0-16.0) 02/25/18 08:54 BUN 18 mg/dL (7-25) 02/25/18 08:54 Creatinine 0.7 mg/dL (0.6-1.2) 02/25/18 08:54 Est GFR ( Amer) > 60.0 ml/min (>90) 02/25/18 08:54 Est GFR (Non-Af Amer) > 60.0 ml/min 02/25/18 08:54 BUN/Creatinine Ratio 25.7 02/25/18 08:54 Glucose 130 mg/dL (70-105) H 02/25/18 08:54 Calcium 9.5 mg/dL (8.6-10.3) 02/25/18 08:54 Total Bilirubin 0.5 mg/dL (0.3-1.0) 02/25/18 08:54 AST 11 U/L (13-39) L 02/25/18 08:54 ALT 10 U/L (7-52) 02/25/18 08:54 Alkaline Phosphatase 52 U/L (34-104) 02/25/18 08:54 Total Protein 6.2 gm/dL (6.0-8.3) 02/25/18 08:54 Albumin 3.7 gm/dL (3.7-5.3) 02/25/18 08:54 Globulin 2.5 gm/dL 02/25/18 08:54 Albumin/Globulin Ratio 1.5 (1.0-1.8) 02/25/18 08:54 Triglycerides 112 mg/dL (<150) 02/21/18 12:30 Cholesterol 197 mg/dL (<200) 02/21/18 12:30 LDL Cholesterol Direct 111 mg/dL (75-193) 02/21/18 12:30 HDL Cholesterol 70 mg/dL (23-92) 02/21/18 12:30 TSH 1.84 uIU/ml (0.34-5.60) 02/25/18 08:54 Urine Source CLEAN C 02/25/18 09:30 Urine Color YELLOW 02/25/18 09:30 Urine Clarity CLEAR (CLEAR) 02/25/18 09:30 Urine pH 7.0 (4.6 - 8.0) 02/25/18 09:30 Ur Specific [place] <= 1.005 (1.005-1.030) 02/25/18 09:30 Urine Protein NEGATIVE mg/dL (NEGATIVE) 02/25/18 09:30 Urine Glucose (UA) NEGATIVE mg/dL (NEGATIVE) 02/25/18 09:30 Urine Ketones NEGATIVE mg/dL (NEGATIVE) 02/25/18 09:30 Urine Blood NEGATIVE (NEGATIVE) 02/25/18 09:30 Urine Nitrate NEGATIVE (NEGATIVE) 02/25/18 09:30 Urine Bilirubin NEGATIVE (NEGATIVE) 02/25/18 09:30 Urine Urobilinogen 0.2 E.U./dL (0.2 - 1.0) 02/25/18 09:30 Ur Leukocyte Esterase NEGATIVE (NEGATIVE) 02/25/18 09:30 - Physical Exam Vitals and I&O: Vital Signs Temp 98.4 F 02/27/18 06:15 Pulse 69 02/27/18 09:02 Resp 20 02/27/18 06:15 BP 144/78 02/27/18 09:02 Pulse Ox 98 02/27/18 06:15 Intake & Output 02/26/18 02/27/18 02/27/18 18:59 06:59 18:59 Intake Total 700 120 Balance 700 120 Intake: Oral 700 120 Other: # Voids 3 1 # Bowel Movements 0 Active Medications: Current Medications Acetaminophen (Tylenol) 650 mg PO Q4H PRN PRN Reason: Pain Or Fever above 101 Stop: 04/22/18 12:11 Last Admin: 02/27/18 06:14 Dose: 650 mg Amlodipine Besylate (Norvasc) 10 mg PO DAILY [facility] Stop: 04/23/18 08:59 Last Admin: 02/27/18 09:00 Dose: 10 mg Atenolol (Tenormin) 50 mg PO DAILY [facility] Stop: 04/22/18 11:59 Last Admin: 02/27/18 09:02 Dose: 50 mg Clonazepam (Klonopin) 0.5 mg PO BID PRN; Protocol PRN Reason: Anxiety Stop: 04/22/18 16:59 Last Admin: 02/26/18 20:24 Dose: 0.5 mg Escitalopram Oxalate (Lexapro) 10 mg PO DAILY [facility]; Protocol Stop: 04/25/18 08:59 Last Admin: 02/27/18 08:59 Dose: 10 mg Guaifenesin (Robitussin) 200 mg PO Q4HR PRN PRN Reason: Cough or Congestion Stop: 04/22/18 12:11 Lisinopril (Zestril) 20 mg PO DAILY [facility] Stop: 04/23/18 08:59 Last Admin: 02/27/18 08:59 Dose: 20 mg Olanzapine (Zyprexa) 2.5 mg PO QAM [facility]; Protocol Stop: 04/22/18 11:44 Last Admin: 02/27/18 09:02 Dose: 2.5 mg Olanzapine (Zyprexa) 2.5 mg PO HS [facility]; Protocol Stop: 04/22/18 20:59 Last Admin: 02/26/18 20:24 Dose: 2.5 mg Ondansetron HCl (Zofran) 4 mg IV Q8H PRN PRN Reason: Nausea / Vomiting Stop: 04/22/18 12:11 General: demented HEENT: NC/AT, PERRLA Neck: Supple Lungs: CTAB Cardiovascular: RRR, Normal S1, Normal S2 Abdomen: soft, non-tender, non-distended Extremities: excoriation Neurological: no change Internal Medicine Assmt/Plan - Assessment Assessment: Assessment: HTN SCHIZOPHRENIA DEPRESSION BIPOLAR SI - Plan Plan: monitor bp closely will adjust bp meds accordingly fall precautions continue current orders - Plan Plan: labs noted cpm Nutritional Asmnt/Malnutr-PDOC - Dietary Evaluation Malnutrition Findings (Please click <Entered> for more info): Nutritional Asmnt/Malnutrition Start: 02/24/18 13: 26 Text: Status: Complete Freq: Protocol: Document 02/24/18 13:26 [email or web address] (Rec: 02/24/18 13:34 [email or web address]) Nutritional Asmnt/Malnutrition Patient General Information Nutritional Screening Moderate Risk Diagnosis anxiety with SI Pertinent Medical Hx/Surgical Hx HTN, schizophrenia, depression , bipolar Subjective Information Pt was alert, walking around the hallway at time of visit. Pt is a Nepali speaker. Nurses assisted in asking if pt has any food preferences, pt had no concerns. PO intake is 75-100% per EMR. Current Diet Order/ Nutrition Support regular Pertinent Medications zofran Pertinent Labs not indicated Nutritional Hx/Data Height 1.52 m Height (Calculated Centimeters) 152.4 Current Weight (lbs) 36.741 kg Weight (Calculated Kilograms) 36.7 Weight (Calculated Grams) 90764.0 [place] Body Weight 100 Body Mass Index (BMI) 15.8 Weight Status Underweight GI Symptoms GI Symptoms None Last BM not indicated Difficult in: None Food Allergies No Skin Integrity/Comment: dryness, tim 20 Current %PO Good (75-100%) Estimated Nutritional Goals BEE in Kcals: Using Current wt Calories/Kcals/Kg 30-35 Kcals Calculated 4094-8324 Protein: Using Current wt Protein g/k.2 Protein Calculated 44 Fluid: ml 0040-0576 (1ml/kcal) Nutritional Problem No current Nutrition Prob Problem N/A Malnutrition Alert Is there a minimum of two criteria No selected? Query Text:Check all the applicable criteria. A minimum of two criteria are recommended for diagnosis of either severe or non-severe malnutrition. Malnutrition Related to Morbid Obesity Malnutrition related to morbid obesity No Intervention/Recommendation Comments 1. Continue with no added salt (4gm) diet as ordered 2. Monitor PO intake, wt, labs and skin integrity 3. Consider adding ensure to assist in weight gain 4. F/U as low risk in 7 days 03/03 PO check 02/27 Expected Outcomes/Goals Expected Outcomes/Goals Goal: PO intake to meet at least 75% of nutritional needs . Reviewed by Claire Leon RD
[2018-02-28] MEDS: Escitalopram Oxalate 5 mg Tab PO SCH (08:30)
--- NOTE | 2018-02-28 14:13 | Internal Medicine Prog Note ---
Internal Medicine Subjective - Subjective Patient seen and examined:: with staff, chart reviewed Patient is:: awake, verbal, interactive Per staff patient has:: no adverse event, no episodes of fall, tolerating meds Internal Medicine Objective - Results Result Diagrams: 02/25/18 08:54 02/25/18 08:54 Recent Labs: Laboratory Last Values WBC 8.4 Th/cmm (4.8-10.8) 02/25/18 08:54 RBC 4.50 Mil/cmm (3.80-5.20) 02/25/18 08:54 Hgb 13.9 gm/dL (12-16) 02/25/18 08:54 Hct 41.0 % (41.0-60) 02/25/18 08:54 MCV 91.0 fl (81-100) 02/25/18 08:54 MCH 30.9 pg (27.0-31.0) 02/25/18 08:54 MCHC Differential 33.9 pg (28.0-36.0) 02/25/18 08:54 RDW 13.0 % (11.5-20.0) 02/25/18 08:54 Plt Count 271 Th/cmm (150-400) 02/25/18 08:54 MPV 7.9 fl 02/25/18 08:54 Neutrophils % 77.1 % (40.0-80.0) 02/25/18 08:54 Lymphocytes % 17.6 % (20.0-50.0) L 02/25/18 08:54 Monocytes % 4.1 % (2.0-10.0) 02/25/18 08:54 Eosinophils % 0.7 % (0.0-5.0) 02/25/18 08:54 Basophils % 0.5 % (0.0-2.0) 02/25/18 08:54 Sodium 144 mEq/L (136-145) 02/25/18 08:54 Potassium 3.5 mEq/L (3.5-5.1) 02/25/18 08:54 Chloride 107 mEq/L (98-107) 02/25/18 08:54 Carbon Dioxide 26.0 mEq/L (21.0-31.0) 02/25/18 08:54 Anion Gap 14.5 (7.0-16.0) 02/25/18 08:54 BUN 18 mg/dL (7-25) 02/25/18 08:54 Creatinine 0.7 mg/dL (0.6-1.2) 02/25/18 08:54 Est GFR ( Amer) > 60.0 ml/min (>90) 02/25/18 08:54 Est GFR (Non-Af Amer) > 60.0 ml/min 02/25/18 08:54 BUN/Creatinine Ratio 25.7 02/25/18 08:54 Glucose 130 mg/dL (70-105) H 02/25/18 08:54 Calcium 9.5 mg/dL (8.6-10.3) 02/25/18 08:54 Total Bilirubin 0.5 mg/dL (0.3-1.0) 02/25/18 08:54 AST 11 U/L (13-39) L 02/25/18 08:54 ALT 10 U/L (7-52) 02/25/18 08:54 Alkaline Phosphatase 52 U/L (34-104) 02/25/18 08:54 Total Protein 6.2 gm/dL (6.0-8.3) 02/25/18 08:54 Albumin 3.7 gm/dL (3.7-5.3) 02/25/18 08:54 Globulin 2.5 gm/dL 02/25/18 08:54 Albumin/Globulin Ratio 1.5 (1.0-1.8) 02/25/18 08:54 Triglycerides 112 mg/dL (<150) 02/21/18 12:30 Cholesterol 197 mg/dL (<200) 02/21/18 12:30 LDL Cholesterol Direct 111 mg/dL (75-193) 02/21/18 12:30 HDL Cholesterol 70 mg/dL (23-92) 02/21/18 12:30 TSH 1.84 uIU/ml (0.34-5.60) 02/25/18 08:54 Urine Source CLEAN C 02/25/18 09:30 Urine Color YELLOW 02/25/18 09:30 Urine Clarity CLEAR (CLEAR) 02/25/18 09:30 Urine pH 7.0 (4.6 - 8.0) 02/25/18 09:30 Ur Specific [place] <= 1.005 (1.005-1.030) 02/25/18 09:30 Urine Protein NEGATIVE mg/dL (NEGATIVE) 02/25/18 09:30 Urine Glucose (UA) NEGATIVE mg/dL (NEGATIVE) 02/25/18 09:30 Urine Ketones NEGATIVE mg/dL (NEGATIVE) 02/25/18 09:30 Urine Blood NEGATIVE (NEGATIVE) 02/25/18 09:30 Urine Nitrate NEGATIVE (NEGATIVE) 02/25/18 09:30 Urine Bilirubin NEGATIVE (NEGATIVE) 02/25/18 09:30 Urine Urobilinogen 0.2 E.U./dL (0.2 - 1.0) 02/25/18 09:30 Ur Leukocyte Esterase NEGATIVE (NEGATIVE) 02/25/18 09:30 - Physical Exam Vitals and I&O: Vital Signs Temp 97.8 F 02/28/18 06:55 Pulse 76 02/28/18 08:47 Resp 16 02/28/18 06:55 BP 122/68 02/28/18 08:47 Pulse Ox 98 02/28/18 06:55 Intake & Output 02/27/18 02/28/18 02/28/18 18:59 06:59 18:59 Intake Total 350 Balance 350 Intake: Oral 350 Other: # Voids 3 # Bowel Movements 0 Active Medications: Current Medications Acetaminophen (Tylenol) 650 mg PO Q4H PRN PRN Reason: Pain Or Fever above 101 Stop: 04/22/18 12:11 Last Admin: 02/27/18 06:14 Dose: 650 mg Amlodipine Besylate (Norvasc) 10 mg PO DAILY [facility] Stop: 04/23/18 08:59 Last Admin: 02/28/18 08:35 Dose: 10 mg Atenolol (Tenormin) 50 mg PO DAILY [facility] Stop: 04/22/18 11:59 Last Admin: 02/28/18 08:46 Dose: Not Given Clonazepam (Klonopin) 0.5 mg PO BID PRN; Protocol PRN Reason: Anxiety Stop: 04/22/18 16:59 Last Admin: 02/26/18 20:24 Dose: 0.5 mg Escitalopram Oxalate (Lexapro) 10 mg PO DAILY [facility]; Protocol Stop: 04/25/18 08:59 Last Admin: 02/28/18 08:30 Dose: 10 mg Guaifenesin (Robitussin) 200 mg PO Q4HR PRN PRN Reason: Cough or Congestion Stop: 04/22/18 12:11 Lisinopril (Zestril) 20 mg PO DAILY [facility] Stop: 04/23/18 08:59 Last Admin: 02/28/18 08:47 Dose: Not Given Olanzapine (Zyprexa) 2.5 mg PO QAM [facility]; Protocol Stop: 04/22/18 11:44 Last Admin: 02/28/18 08:30 Dose: 2.5 mg Olanzapine (Zyprexa) 2.5 mg PO HS [facility]; Protocol Stop: 04/22/18 20:59 Last Admin: 02/27/18 20:25 Dose: 2.5 mg Ondansetron HCl (Zofran) 4 mg IV Q8H PRN PRN Reason: Nausea / Vomiting Stop: 04/22/18 12:11 General: demented HEENT: NC/AT, PERRLA Neck: Supple Lungs: CTAB Cardiovascular: RRR, Normal S1, Normal S2 Abdomen: soft, non-tender, non-distended Extremities: excoriation Neurological: no change Internal Medicine Assmt/Plan - Assessment Assessment: Assessment: HTN SCHIZOPHRENIA DEPRESSION BIPOLAR SI - Plan Plan: monitor bp closely will adjust bp meds accordingly fall precautions continue current orders - Plan Plan: labs noted cpm Nutritional Asmnt/Malnutr-PDOC - Dietary Evaluation Malnutrition Findings (Please click <Entered> for more info): Nutritional Asmnt/Malnutrition Start: 02/24/18 13: 26 Text: Status: Complete Freq: Protocol: Document 02/24/18 13:26 [email or web address] (Rec: 02/24/18 13:34 [email or web address]) Nutritional Asmnt/Malnutrition Patient General Information Nutritional Screening Moderate Risk Diagnosis anxiety with SI Pertinent Medical Hx/Surgical Hx HTN, schizophrenia, depression , bipolar Subjective Information Pt was alert, walking around the hallway at time of visit. Pt is a Bahamian speaker. Nurses assisted in asking if pt has any food preferences, pt had no concerns. PO intake is 75-100% per EMR. Current Diet Order/ Nutrition Support regular Pertinent Medications zofran Pertinent Labs not indicated Nutritional Hx/Data Height 1.52 m Height (Calculated Centimeters) 152.4 Current Weight (lbs) 36.741 kg Weight (Calculated Kilograms) 36.7 Weight (Calculated Grams) 11052.0 [place] Body Weight 100 Body Mass Index (BMI) 15.8 Weight Status Underweight GI Symptoms GI Symptoms None Last BM not indicated Difficult in: None Food Allergies No Skin Integrity/Comment: dryness, tim 20 Current %PO Good (75-100%) Estimated Nutritional Goals BEE in Kcals: Using Current wt Calories/Kcals/Kg 30-35 Kcals Calculated 3557-5467 Protein: Using Current wt Protein g/k.2 Protein Calculated 44 Fluid: ml 9194-0986 (1ml/kcal) Nutritional Problem No current Nutrition Prob Problem N/A Malnutrition Alert Is there a minimum of two criteria No selected? Query Text:Check all the applicable criteria. A minimum of two criteria are recommended for diagnosis of either severe or non-severe malnutrition. Malnutrition Related to Morbid Obesity Malnutrition related to morbid obesity No Intervention/Recommendation Comments 1. Continue with no added salt (4gm) diet as ordered 2. Monitor PO intake, wt, labs and skin integrity 3. Consider adding ensure to assist in weight gain 4. F/U as low risk in 7 days 03/03 PO check 02/27 Expected Outcomes/Goals Expected Outcomes/Goals Goal: PO intake to meet at least 75% of nutritional needs . Reviewed by Claire Leon RD
--- NOTE | 2018-02-28 23:44 | Progress Notes ---
DATE: 02/28/2018 SUBJECTIVE: Staff was spoken to. The patient is interviewed. Mood is noted to be depressed. Affect is constricted. The patient's insight and judgment are noted to be still impaired. Impulse control is noted to poor. Coping skills are noted to be very poor. The patient has been having difficult time to cope with the stress. The patient is still insisting on hurting herself. The patient is not able to contract for safety and it is decided to increase the dose on the olanzapine to 5 mg at bedtime and then discontinue the one in the morning. The patient is still having suicidal ideation or homicidal ideation is reported ____ she cannot deal with the stress any longer. ASSESSMENT: The patient is still depressed and suicidal. PLAN: To continue the patient with the supportive therapy, encouraged the patient to verbalize the concerns rather than to act out. The patient is going to be continued with olanzapine and the Lexapro and followed up with the supportive therapy. JOB# [id number]
[2018-03-01] MEDS: Escitalopram Oxalate 5 mg Tab PO SCH (08:16)
--- NOTE | 2018-03-01 15:00 | Internal Medicine Prog Note ---
Internal Medicine Subjective - Subjective Patient seen and examined:: with staff, chart reviewed Patient is:: awake, verbal, interactive Per staff patient has:: no adverse event, no episodes of fall, tolerating meds Internal Medicine Objective - Results Result Diagrams: 02/25/18 08:54 02/25/18 08:54 Recent Labs: Laboratory Last Values WBC 8.4 Th/cmm (4.8-10.8) 02/25/18 08:54 RBC 4.50 Mil/cmm (3.80-5.20) 02/25/18 08:54 Hgb 13.9 gm/dL (12-16) 02/25/18 08:54 Hct 41.0 % (41.0-60) 02/25/18 08:54 MCV 91.0 fl (81-100) 02/25/18 08:54 MCH 30.9 pg (27.0-31.0) 02/25/18 08:54 MCHC Differential 33.9 pg (28.0-36.0) 02/25/18 08:54 RDW 13.0 % (11.5-20.0) 02/25/18 08:54 Plt Count 271 Th/cmm (150-400) 02/25/18 08:54 MPV 7.9 fl 02/25/18 08:54 Neutrophils % 77.1 % (40.0-80.0) 02/25/18 08:54 Lymphocytes % 17.6 % (20.0-50.0) L 02/25/18 08:54 Monocytes % 4.1 % (2.0-10.0) 02/25/18 08:54 Eosinophils % 0.7 % (0.0-5.0) 02/25/18 08:54 Basophils % 0.5 % (0.0-2.0) 02/25/18 08:54 Sodium 144 mEq/L (136-145) 02/25/18 08:54 Potassium 3.5 mEq/L (3.5-5.1) 02/25/18 08:54 Chloride 107 mEq/L (98-107) 02/25/18 08:54 Carbon Dioxide 26.0 mEq/L (21.0-31.0) 02/25/18 08:54 Anion Gap 14.5 (7.0-16.0) 02/25/18 08:54 BUN 18 mg/dL (7-25) 02/25/18 08:54 Creatinine 0.7 mg/dL (0.6-1.2) 02/25/18 08:54 Est GFR ( Amer) > 60.0 ml/min (>90) 02/25/18 08:54 Est GFR (Non-Af Amer) > 60.0 ml/min 02/25/18 08:54 BUN/Creatinine Ratio 25.7 02/25/18 08:54 Glucose 130 mg/dL (70-105) H 02/25/18 08:54 Calcium 9.5 mg/dL (8.6-10.3) 02/25/18 08:54 Total Bilirubin 0.5 mg/dL (0.3-1.0) 02/25/18 08:54 AST 11 U/L (13-39) L 02/25/18 08:54 ALT 10 U/L (7-52) 02/25/18 08:54 Alkaline Phosphatase 52 U/L (34-104) 02/25/18 08:54 Total Protein 6.2 gm/dL (6.0-8.3) 02/25/18 08:54 Albumin 3.7 gm/dL (3.7-5.3) 02/25/18 08:54 Globulin 2.5 gm/dL 02/25/18 08:54 Albumin/Globulin Ratio 1.5 (1.0-1.8) 02/25/18 08:54 Triglycerides 112 mg/dL (<150) 02/21/18 12:30 Cholesterol 197 mg/dL (<200) 02/21/18 12:30 LDL Cholesterol Direct 111 mg/dL (75-193) 02/21/18 12:30 HDL Cholesterol 70 mg/dL (23-92) 02/21/18 12:30 TSH 1.84 uIU/ml (0.34-5.60) 02/25/18 08:54 Urine Source CLEAN C 02/25/18 09:30 Urine Color YELLOW 02/25/18 09:30 Urine Clarity CLEAR (CLEAR) 02/25/18 09:30 Urine pH 7.0 (4.6 - 8.0) 02/25/18 09:30 Ur Specific [place] <= 1.005 (1.005-1.030) 02/25/18 09:30 Urine Protein NEGATIVE mg/dL (NEGATIVE) 02/25/18 09:30 Urine Glucose (UA) NEGATIVE mg/dL (NEGATIVE) 02/25/18 09:30 Urine Ketones NEGATIVE mg/dL (NEGATIVE) 02/25/18 09:30 Urine Blood NEGATIVE (NEGATIVE) 02/25/18 09:30 Urine Nitrate NEGATIVE (NEGATIVE) 02/25/18 09:30 Urine Bilirubin NEGATIVE (NEGATIVE) 02/25/18 09:30 Urine Urobilinogen 0.2 E.U./dL (0.2 - 1.0) 02/25/18 09:30 Ur Leukocyte Esterase NEGATIVE (NEGATIVE) 02/25/18 09:30 - Physical Exam Vitals and I&O: Vital Signs Temp 98.3 F 03/01/18 13:29 Pulse 75 03/01/18 13:29 Resp 19 03/01/18 13:29 BP 143/93 03/01/18 13:29 Pulse Ox 98 03/01/18 13:29 Intake & Output 02/28/18 03/01/18 03/01/18 18:59 06:59 18:59 Intake Total 480 Balance 480 Intake: Oral 480 Other: # Voids 2 Active Medications: Current Medications Acetaminophen (Tylenol) 650 mg PO Q4H PRN PRN Reason: Pain Or Fever above 101 Stop: 04/22/18 12:11 Last Admin: 02/28/18 14:58 Dose: 650 mg Amlodipine Besylate (Norvasc) 10 mg PO DAILY [facility] Stop: 04/23/18 08:59 Last Admin: 03/01/18 08:17 Dose: 10 mg Atenolol (Tenormin) 50 mg PO DAILY [facility] Stop: 04/22/18 11:59 Last Admin: 03/01/18 08:16 Dose: 50 mg Clonazepam (Klonopin) 0.5 mg PO BID PRN; Protocol PRN Reason: Anxiety Stop: 04/22/18 16:59 Last Admin: 02/26/18 20:24 Dose: 0.5 mg Escitalopram Oxalate (Lexapro) 10 mg PO DAILY [facility]; Protocol Stop: 04/25/18 08:59 Last Admin: 03/01/18 08:16 Dose: 10 mg Guaifenesin (Robitussin) 200 mg PO Q4HR PRN PRN Reason: Cough or Congestion Stop: 04/22/18 12:11 Lisinopril (Zestril) 20 mg PO DAILY [facility] Stop: 04/23/18 08:59 Last Admin: 03/01/18 08:16 Dose: 20 mg Olanzapine (Zyprexa) 5 mg PO HS [facility]; Protocol Stop: 04/29/18 20:59 Last Admin: 02/28/18 20:23 Dose: 5 mg Ondansetron HCl (Zofran) 4 mg IV Q8H PRN PRN Reason: Nausea / Vomiting Stop: 04/22/18 12:11 General: demented HEENT: NC/AT, PERRLA Neck: Supple Lungs: CTAB Cardiovascular: RRR, Normal S1, Normal S2 Abdomen: soft, non-tender, non-distended Extremities: excoriation Neurological: no change Internal Medicine Assmt/Plan - Assessment Assessment: Assessment: HTN SCHIZOPHRENIA DEPRESSION BIPOLAR SI - Plan Plan: monitor bp closely will adjust bp meds accordingly fall precautions continue current orders - Plan Plan: labs noted cpm Nutritional Asmnt/Malnutr-PDOC - Dietary Evaluation Malnutrition Findings (Please click <Entered> for more info): Nutritional Asmnt/Malnutrition Start: 02/24/18 13: 26 Text: Status: Complete Freq: Protocol: Document 02/24/18 13:26 [email or web address] (Rec: 02/24/18 13:34 [email or web address]) Nutritional Asmnt/Malnutrition Patient General Information Nutritional Screening Moderate Risk Diagnosis anxiety with SI Pertinent Medical Hx/Surgical Hx HTN, schizophrenia, depression , bipolar Subjective Information Pt was alert, walking around the hallway at time of visit. Pt is a [place] speaker. Nurses assisted in asking if pt has any food preferences, pt had no concerns. PO intake is 75-100% per EMR. Current Diet Order/ Nutrition Support regular Pertinent Medications zofran Pertinent Labs not indicated Nutritional Hx/Data Height 1.52 m Height (Calculated Centimeters) 152.4 Current Weight (lbs) 36.741 kg Weight (Calculated Kilograms) 36.7 Weight (Calculated Grams) [address]12.0 [place] Body Weight 100 Body Mass Index (BMI) 15.8 Weight Status Underweight GI Symptoms GI Symptoms None Last BM not indicated Difficult in: None Food Allergies No Skin Integrity/Comment: dryness, tim 20 Current %PO Good (75-100%) Estimated Nutritional Goals BEE in Kcals: Using Current wt Calories/Kcals/Kg 30-35 Kcals Calculated 5600-8814 Protein: Using Current wt Protein g/k.2 Protein Calculated 44 Fluid: ml 5769-9165 (1ml/kcal) Nutritional Problem No current Nutrition Prob Problem N/A Malnutrition Alert Is there a minimum of two criteria No selected? Query Text:Check all the applicable criteria. A minimum of two criteria are recommended for diagnosis of either severe or non-severe malnutrition. Malnutrition Related to Morbid Obesity Malnutrition related to morbid obesity No Intervention/Recommendation Comments 1. Continue with no added salt (4gm) diet as ordered 2. Monitor PO intake, wt, labs and skin integrity 3. Consider adding ensure to assist in weight gain 4. F/U as low risk in 7 days 03/03 PO check 02/27 Expected Outcomes/Goals Expected Outcomes/Goals Goal: PO intake to meet at least 75% of nutritional needs . Reviewed by Claire Leon RD
--- NOTE | 2018-03-01 21:26 | Progress Notes ---
DATE: 03/01/2018 PSYCHIATRIC PROGRESS NOTE SUBJECTIVE: Staff was spoken to. The patient is interviewed. Mood is noted to be anxious. Affect is appropriate. Not suicidal or homicidal. Insight and judgment are improving. Impulse control seems to be fair. No side effects to the medications are noted. ASSESSMENT: The patient is stabilizing. PLAN: To discharge the patient today for followup on outpatient basis. JOB# [id number]
== END 2018-03-01 17:55 | DRG 885 ==
LOC: GERO2 10:02
PROVIDERS: ADMIT Psychiatry & Neurology Psychiatry; ATTEND Psychiatry & Neurology Psychiatry
DX: F25.9 Schizoaffective disorder, unspecified (principal); R45.851 Suicidal ideations; I10 Essential (primary) hypertension
CPT/HCPCS: 36415-UA; 80053-TC; 80061-TC; 81003-TC; 83036-90; 84443-TC; 85025-TC; Z7610